=== PATIENT | female | born 1975 | race Caucasian/White ===

== ENCOUNTER → 2016-08-07 | Outpatient (CLI) | payer OTHER ==
--- NOTE | 2016-08-07 10:50 | REPMRS ---
Patient History The patient states she had a clinical breast exam in 06/29 Baseline Mammogram Patient had first child at age 32. No known family history of cancer. Took hormonal contraceptives for 1 month. Digital Woman Screen Mammo: August 07, 2016 - Exam #: [id number] Bilateral CC and MLO view(s) were taken. Technologist: Maryan Madison, Technologist FINDINGS: There are scattered fibroglandular densities. There is no evidence of cancer on this mammogram. ASSESSMENT: BI-RADS/ACR category 2 mammogram. Benign finding(s). Recommendation Routine screening mammogram of both breasts in 1 year (for women over age 40). This mammogram was interpreted with the aid of an FDA-approved computer-aided dectection system. Electronically Signed By: Phong Mccain MD 08/07/16 1040
== END ==
LOC: M WHC 09:24
PROVIDERS: ATTEND Nurse Practitioner Adult Health
DX: Z12.31 Encounter for screening mammogram for malignant neoplasm of breast (principal)

== ENCOUNTER → 2016-11-15 | Outpatient (REF) | payer OTHER ==
[2016-11-15 14:46] LABS: MEAN CORPUSCULAR HEMOGLOBIN 33.8 pg (27.0-33.0); MEAN CORPUSCULAR HGB CONC 34.8 g/dl (32.0-36.5); MEAN CORPUSCULAR VOLUME 97.1 fl (80.0-96.0); RED CELL DISTRIBUTION WIDTH 11.6 % (11.5-14.5); WHITE BLOOD COUNT 9.7 K/mm3 (4.0-10.0)
[2016-11-15 14:49] LABS: HCG, SERUM QUANTITATIVE 90840 MIU/ML
== END ==
LOC: M LAB REF 13:33
PROVIDERS: ATTEND Advanced Practice Midwife
DX: O36.80X0 Pregnancy with inconclusive fetal viability, not applicable or unspecified (principal)

== ENCOUNTER → 2016-12-06 | Outpatient (REF) | payer OTHER ==
[2016-12-06 21:43] LABS: CALCIUM OXALATE CRYSTALS SMALL
== END ==
LOC: M LAB REF 21:14
PROVIDERS: ATTEND Physician Assistant Medical
DX: N39.0 Urinary tract infection, site not specified (principal)

== ENCOUNTER → 2017-03-01 | Outpatient (CLI) | payer OTHER ==
[2017-03-01 13:32] LABS: MEAN CORPUSCULAR HEMOGLOBIN 33.3 pg (27.0-33.0); MEAN CORPUSCULAR HGB CONC 34.6 g/dl (32.0-36.5); MEAN CORPUSCULAR VOLUME 96.3 fl (80.0-96.0); PLATELET COUNT, AUTOMATED 181 10^3/uL (150-450); RED CELL DISTRIBUTION WIDTH 12.4 % (11.5-14.5); WHITE BLOOD COUNT 10.6 10^3/uL (4.0-10.0)
== END ==
LOC: M LAB 11:50
PROVIDERS: ATTEND Advanced Practice Midwife
DX: O09.522 Supervision of elderly multigravida, second trimester (principal); Z3A.23 23 weeks gestation of pregnancy

== ENCOUNTER → 2017-03-05 | Outpatient (REF) | payer OTHER | LOC: M LAB REF 13:03 | PROVIDERS: ATTEND Advanced Practice Midwife | DX: R30.0 Dysuria (principal) ==

== ENCOUNTER → 2017-04-06 | Outpatient (REF) | payer OTHER ==
[~2017-04-06] MED LIST: MACR100C43 PO; PYRI1TAB5 PO; SERT-155 PO
[2017-04-06 21:45] LABS: CALCIUM OXALATE CRYSTALS MODERATE
== END ==
LOC: M LAB REF 12:47
PROVIDERS: ATTEND Physician Assistant
DX: R30.0 Dysuria (principal)

== ENCOUNTER 2017-04-11 15:51 | Emergency (ER) | payer OTHER ==
[2017-04-11 16:57] LABS: AMORPHOUS SEDIMENT RFX SMALL (NEGATIVE); CALCIUM OXALATE CRYSTALS RFX SMALL; KETONE, URINE AUTO RFX TRACE mg/dL (NEGATIVE); MUCUS, URINE RFX LARGE (NEGATIVE); NITRITE, URINE AUTO RFX NEGATIVE (NEGATIVE); RBC, URINE AUTO RFX TNTC /HPF (0-3); SPECIFIC GRAVITY UR AUTO RFX 1.045 (1.002-1.035); SQUAM EPITHELIAL CELL UR AURFX 19 /HPF (0-6)
[2017-04-11 17:09] LABS: LEUKOCYTE ESTERASE UR AUTO RFX 1+ (NEGATIVE); WBC, URINE AUTO RFX 41 /HPF (0-3)
[2017-04-11 17:44] LABS: BASO % 0.4 % (0.0-1.0); EOS % 0.5 % (0.0-3.0); IMMATURE GRANULOCYTE % 0.5 % (0-0); LYMPH % 23.3 % (24.0-44.0); MEAN CORPUSCULAR HEMOGLOBIN 33.1 pg (27.0-33.0); MEAN CORPUSCULAR VOLUME 97.5 fl (80.0-96.0); MONO # 0.5 10^3/uL (0.0-0.8); MONO % 5.7 % (0.0-5.0); NEUTROPHILS # 5.9 10^3/uL (1.8-7.7); NEUTROPHILS % 69.6 % (36.0-66.0); PLATELET COUNT, AUTOMATED 197 10^3/uL (150-450); RED CELL DISTRIBUTION WIDTH 12.5 % (11.5-14.5); WHITE BLOOD COUNT 8.4 10^3/uL (4.0-10.0)
[2017-04-11 18:16] LABS: ANION GAP 7 MEQ/L (8-16); BLOOD UREA NITROGEN 14 MG/DL (7-18); CALCIUM LEVEL 8.6 MG/DL (8.5-10.1); CARBON DIOXIDE LEVEL 26 MEQ/L (21-32); CHLORIDE LEVEL 104 MEQ/L (98-107); GLOMERULAR FILTRATION RATE > 60.0 (>58); GLUCOSE, FASTING 78 MG/DL (70-105); POTASSIUM SERUM 4.1 MEQ/L (3.5-5.1); SODIUM LEVEL 137 MEQ/L (136-145)
== END 2017-04-11 19:00 | disposition home or self-care (01) ==
LOC: M ED 15:51
DX: O23.23 Infections of urethra in pregnancy, third trimester (principal); Z3A.29 29 weeks gestation of pregnancy; Z79.2 Long term (current) use of antibiotics
CPT/HCPCS: 76775

== ENCOUNTER → 2017-04-28 | Outpatient (REF) | payer OTHER | LOC: M LAB REF 18:47 | DX: R30.0 Dysuria (principal) | CPT/HCPCS: 87086 ==

== ENCOUNTER → 2017-05-27 | Outpatient (REF) | payer OTHER | LOC: M LAB REF 18:02 | DX: O09.513 Supervision of elderly primigravida, third trimester (principal) ==

== ENCOUNTER 2017-06-22 09:57 | Inpatient (IN) | payer OTHER ==
[2017-06-22] MEDS: busPIRone 5 MG TAB PO (09:00)
[2017-06-22] MEDS: SERTRALINE 100 MG TAB PO (09:00)
[2017-06-22] MEDS: LR 1,000 ML IV (10:21)
[2017-06-22] MEDS: LACTATED RINGER'S 1000 ML IV (10:21)
[2017-06-22 11:07] LABS: HEMATOCRIT 36.3 % (36.0-47.0); HEMOGLOBIN 12.5 g/dl (12.0-16.0); MEAN CORPUSCULAR HEMOGLOBIN 33.9 pg (27.0-33.0); MEAN CORPUSCULAR HGB CONC 34.4 g/dl (32.0-36.5); MEAN CORPUSCULAR VOLUME 98.4 fl (80.0-96.0); PLATELET COUNT, AUTOMATED 134 10^3/uL (150-450); RED BLOOD COUNT 3.69 10^6/uL (4.00-5.40); RED CELL DISTRIBUTION WIDTH 12.7 % (11.5-14.5); WHITE BLOOD COUNT 9.5 10^3/uL (4.0-10.0)
[2017-06-22] MEDS ORDERED: FENTANYL 2MCG/ML ROPIVACAINE 0.2% IN 0.9% NACL 200ML IVBAG As Ordered (11:14)
[2017-06-22 11:30] LABS: AMPHETAMINES URINE REFLEX NEGATIVE (NEGATIVE); BARBITURATES URINE REFLEX NEGATIVE (NEGATIVE); BENZODIAZEPINES URINE REFLEX NEGATIVE (NEGATIVE); COCAINE METABOLITE URINE REFLE NEGATIVE (NEGATIVE); METHADONE URINE REFLEX NEGATIVE (NEGATIVE); OPIATES URINE REFLEX NEGATIVE (NEGATIVE); PHENCYCLIDINE URINE REFLEX NEGATIVE (NEGATIVE)
[2017-06-22 11:37] LABS: CANNABINOIDS URINE REFLEX PENDING CONFIRMATION (NEGATIVE)
[2017-06-22] MEDS ORDERED: ONDANSETRON 4MG/2ML VIAL (J2405) IV (12:15)
[2017-06-22] MEDS ORDERED: EPIDURAL COMMENT XX (12:15)
[2017-06-22] MEDS ORDERED: LACTATED RINGER'S 1000 ML IV (12:15)
[2017-06-22] MEDS ORDERED: REFRIGERATOR IV KEYS XX (12:15)
[2017-06-22] MEDS ORDERED: diphenhydrAMINE INJ 50MG/ML VIAL (J1200) IV (12:15)
[2017-06-22] MEDS ORDERED: EPIDURAL/PCA KEYS XX (12:15)
[2017-06-22] MEDS ORDERED: NALOXONE INJ 0.4 MG/1 ML VIAL (J2310) IV (12:15)
[2017-06-22] MEDS ORDERED: FENTANYL/ROPIVACAINE/NACL BAG 200 ML EPIDURAL (12:15)
[2017-06-22] MEDS ORDERED: ePHEDrine SULFATE 25 MG/5 ML(5MG/ML) SYRINGE IV (12:15)
[2017-06-22] MEDS ORDERED: OXYTOCIN 30 UNITS IN 0.9% NaCl 500ML IV BAG (J2590) As Ordered (16:03)
[2017-06-22] MEDS ORDERED: DOCUSATE SODIUM 100 MG CAP PO (18:15)
[2017-06-22] MEDS ORDERED: MEASLES,MUMPS,RUBELLA VACCINE INJ (MMR-II) (90707) SC (18:15)
[2017-06-22] MEDS: OXYTOCIN DRIP 30 UNITS in APPROPRIATE DILUENT 1 EA IV (18:15)
[2017-06-22] MEDS ORDERED: RHOGAM 300 MCG (1500 IU) INJ (J2790) IM (18:15)
[2017-06-22] MEDS ORDERED: DIBUCAINE 1% OINTMENT 30GM TOP (18:15)
[2017-06-22] MEDS ORDERED: METHYLERGONOVINE MALEATE 0.2 MG TAB PO (18:15)
[2017-06-22] MEDS: NITROFURANTOIN (MACROBID) 100 MG CAP PO (21:09)
[2017-06-22] MEDS: IBUPROFEN 800 MG TAB PO (21:09)
[2017-06-23] MEDS: IBUPROFEN 800 MG TAB PO ×2 (08:17→16:05)
[2017-06-23] MEDS: SERTRALINE 100 MG TAB PO (08:55)
[2017-06-23] MEDS: PRENATAL VITAMINS CHEWABLE TABLET PO (08:55)
[2017-06-23] MEDS: busPIRone 5 MG TAB PO (08:55)
[2017-06-23] MEDS: medroxyPROGESTERone ACET IM SUSP 150 MG/ML VIAL (J1050) IM (08:55)
[2017-06-23] MEDS: NITROFURANTOIN (MACROBID) 100 MG CAP PO ×2 (08:55→20:30)
[2017-06-23] MEDS: ACETAMINOPHEN 500 MG TAB PO (20:30)
[2017-06-24] MEDS: PRENATAL VITAMINS CHEWABLE TABLET PO (08:09)
[2017-06-24] MEDS: NITROFURANTOIN (MACROBID) 100 MG CAP PO (08:10)
[2017-06-24] MEDS: SERTRALINE 100 MG TAB PO (08:10)
[2017-06-24] MEDS: ACETAMINOPHEN 500 MG TAB PO (08:10)
[2017-06-24] MEDS: busPIRone 5 MG TAB PO (08:10)
== END 2017-06-24 14:15 | disposition home or self-care (01) | DRG 560 ==
LOC: M LDO 09:57 → M LDI 10:20 → M OBS 19:47
PROVIDERS: Specialist
PROC: 10E0XZZ Delivery of Products of Conception, External Approach (ICD-10-PCS; principal; 2017-06-22)
PROC: 0HQ9XZZ Repair Perineum Skin, External Approach (ICD-10-PCS; 2017-06-22)
DX: O70.0 First degree perineal laceration during delivery (principal); F32.9 Major depressive disorder, single episode, unspecified; O99.344 Other mental disorders complicating childbirth; Z37.0 Single live birth; Z3A.39 39 weeks gestation of pregnancy; F41.9 Anxiety disorder, unspecified; O09.523 Supervision of elderly multigravida, third trimester; Z79.899 Other long term (current) drug therapy

== ENCOUNTER 2017-09-25 13:53 | Day surgery (SDC) | payer OTHER ==
[2017-09-25] MEDS ORDERED: ceFAZolin 2 GM/D5W 50 ML IV BAG (J0690 PER 500MG) As Ordered ×2 (14:06)
[2017-09-25 14:14] LABS: CONTROL LINE UCG INT CTR LINE PRESENT; URINE PREG TEST NEGATIVE (NEGATIVE)
[2017-09-25] MEDS ORDERED: ACETAMINOPHEN 650 MG SUPP PR ×2 (14:30)
[2017-09-25] MEDS: LR 1,000 ML IV ×2 (14:32)
[2017-09-25 14:37] LABS: HEMOGLOBIN 14.5 g/dl (12.0-15.5); MEAN CORPUSCULAR HEMOGLOBIN 32.5 pg (27.0-33.0); MEAN CORPUSCULAR HGB CONC 34.5 g/dl (32.0-36.5); MEAN CORPUSCULAR VOLUME 94.2 fl (80.0-96.0); PLATELET COUNT, AUTOMATED 204 10^3/uL (150-450); RED BLOOD COUNT 4.46 10^6/uL (4.00-5.40); RED CELL DISTRIBUTION WIDTH 11.9 % (11.5-14.5)
[2017-09-25] MEDS ORDERED: ACETAMINOPHEN 650 MG SUPP As Ordered ×2 (15:18)
[2017-09-25] MEDS ORDERED: VASOPRESSIN INJ 20 UNITS/ML VIAL As Ordered ×4 (15:18→19:42)
[2017-09-25] MEDS ORDERED: PROPOFOL 200 MG/20 ML VIAL As Ordered ×2 (15:27)
[2017-09-25] MEDS ORDERED: MIDAZOLAM INJ 2 MG/2 ML VIAL (J2250) As Ordered ×2 (15:27)
[2017-09-25] MEDS ORDERED: ROCURONIUM BROMIDE 50 MG/5 ML VIAL As Ordered ×2 (15:27)
[2017-09-25] MEDS ORDERED: KETOROLAC 60 MG/2 ML VIAL (J1885) As Ordered ×2 (15:27)
[2017-09-25] MEDS ORDERED: ONDANSETRON 4MG/2ML VIAL (J2405) As Ordered ×2 (15:27)
[2017-09-25] MEDS ORDERED: dexameTHASONE 4 MG/ML 1ML VIAL (J1100) As Ordered ×2 (15:27)
[2017-09-25] MEDS ORDERED: HYDROmorphone HCL 2 MG/ML 1ML VIAL (J1170) As Ordered ×2 (15:27)
[2017-09-25] MEDS ORDERED: fentaNYL 100 MCG/2 ML INJECTION (J3010) As Ordered ×2 (15:28)
[2017-09-25] MEDS: fentaNYL 100 MCG/2 ML INJECTION (J3010) IV ×8 (21:19→21:38)
[2017-09-25] MEDS: PERCOCET 5MG/325MG TAB PO ×4 (21:19→21:57)
[2017-09-25] MEDS: METOCLOPRAMIDE INJ 10MG/2ML VIAL (J2765) IV ×2 (21:19)
[2017-09-25] MEDS ORDERED: ONDANSETRON 4MG/2ML VIAL (J2405) IV ×2 (21:30)
[2017-09-25] MEDS ORDERED: LR 1,000 ML IV ×2 (21:30)
[2017-09-25] MEDS ORDERED: MEPERIDINE INJ 25 MG/ML VIAL (J2175) IV ×2 (21:30)
[2017-09-26] MEDS: SIMETHICONE 80 MG CHEW TAB PO ×6 (00:29→12:08)
[2017-09-26] MEDS: IBUPROFEN 800 MG TAB PO ×6 (00:37→12:09)
[2017-09-26] MEDS: PERCOCET 5MG/325MG TAB PO ×4 (02:29→07:11)
[2017-09-26] MEDS: LR 1,000 ML IV ×2 (02:56)
== END 2017-09-26 13:10 | disposition home or self-care (01) ==
LOC: M SDC 13:53 → M PED 22:10
DX: N81.2 Incomplete uterovaginal prolapse (principal); N39.3 Stress incontinence (female) (male); F41.9 Anxiety disorder, unspecified; F32.9 Major depressive disorder, single episode, unspecified; Z79.899 Other long term (current) drug therapy
CPT/HCPCS: 58262

== ENCOUNTER → 2018-08-20 | Outpatient (REF) | payer OTHER ==
[~2018-08-20] MED LIST changes: +BUSP5TA PO; +IBUP-1114 PO; +IBUP80TA PO; +MAPA500T2 PO; +PERC5TAB12 PO
== END ==
LOC: M LAB REF 16:30
PROVIDERS: ATTEND Physician Assistant
DX: R30.0 Dysuria (principal)

== ENCOUNTER → 2018-09-11 | Outpatient (REF) | payer OTHER | LOC: M LAB REF 12:15 | PROVIDERS: ATTEND Nurse Practitioner Adult Health | DX: B35.1 Tinea unguium (principal) ==

== ENCOUNTER → 2019-11-13 | Outpatient (CLI) | payer OTHER, SELFPAY ==
[~2019-11-13] MED LIST changes: -SERT-155 PO; +SERT50TA29 PO
== END ==
LOC: M LABSMTC 13:15
PROVIDERS: ATTEND Pediatrics
DX: Z20.828 Contact with and (suspected) exposure to other viral communicable diseases (principal); Z11.59 Encounter for screening for other viral diseases
CPT/HCPCS: C9803; U0003

== ENCOUNTER → 2019-12-01 | Outpatient (REF) | payer OTHER | LOC: M LAB REF 17:13 | PROVIDERS: ATTEND Nurse Practitioner Adult Health | DX: N39.0 Urinary tract infection, site not specified (principal) ==

== ENCOUNTER → 2019-12-30 | Outpatient (REF) | payer OTHER ==
[2019-12-30 18:14] LABS: APPEARANCE, URINE HAZY (CLEAR); BACTERIA, URINE AUTO NEGATIVE (NEGATIVE); BILIRUBIN, URINE AUTO NEGATIVE (NEGATIVE); BLOOD, URINE BLOOD 3+ (NEGATIVE); COLOR, URINE YELLOW (YELLOW); GLUCOSE, URINE (UA) AUTO NEGATIVE (NEGATIVE); KETONE, URINE AUTO NEGATIVE (NEGATIVE); LEUKOCYTE ESTERASE, URINE AUTO NEGATIVE (NEGATIVE); MUCUS, URINE SMALL (NEGATIVE); NITRITE, URINE AUTO NEGATIVE (NEGATIVE); PROTEIN, URINE AUTO NEGATIVE (NEGATIVE); RBC, URINE AUTO 23 /HPF (0-3); SQUAMOUS EPITHELIAL CELL UR AU 4 /HPF (0-6); UROBILINOGEN, URINE AUTO 0.2 mg/dL (0.0-2.0); WBC, URINE AUTO 2 /HPF (0-3)
== END ==
LOC: M SMT 16:58
PROVIDERS: ATTEND Nurse Practitioner Family
DX: N39.0 Urinary tract infection, site not specified (principal); R30.0 Dysuria

== ENCOUNTER → 2020-07-19 | Outpatient (CLI) | payer OTHER ==
--- NOTE | 2020-07-19 12:53 | REPMRS ---
Patient History The patient states she had a clinical breast exam in 07/2020 Patient had first child at age 32. No known family history of cancer. Took hormonal contraceptives for 1 month. 3D TOMOSYNTHESIS WAS PERFORMED. [facility] lifetime risk for [facility] cancer is 14.0%. Volpara breast density b. Digital Woman Screen Mammo: July 19, 2020 - Exam #: [id number] Bilateral CC and MLO view(s) were taken. Technologist: Maryan Madison, Technologist Prior study comparison: August 07, 2016, digital woman screen mammo performed at [facility] [place]. FINDINGS: There are scattered fibroglandular densities. There has been no change in the appearance of the mammogram from the prior studies. There is a mild amount of residual fibroglandular tissue which is fairly symmetric. There is no interval development of dominant mass, architectural distortion, or clustered microcalcification suggestive of malignancy. Assessment: BI-RADS/ACR category 1 mammogram. Negative Mammogram. Recommendation Routine screening mammogram in 1 year (for women over age 40). This mammogram was interpreted with the aid of an FDA-approved computer-aided dectection system. Electronically Signed By: Phong Mccain MD 07/19/20 [id number]
== END ==
LOC: M WHC 12:16
PROVIDERS: ATTEND Obstetrics & Gynecology
DX: Z12.31 Encounter for screening mammogram for malignant neoplasm of breast (principal)

== ENCOUNTER → 2020-09-19 | Outpatient (CLI) | payer OTHER ==
--- NOTE | 2020-09-19 21:50 | REP ---
INDICATION: PAIN COMPARISON: None. TECHNIQUE: AP, lateral, bilateral oblique views. FINDINGS: Lateral swelling consistent with inversion injury. No acute fracture or dislocation. Ankle mortise and talar dome intact. No subcutaneous emphysema or foreign body. IMPRESSION: Lateral swelling. No fracture. <Electronically signed by Quentin June > 09/19/20 [id number]
== END ==
LOC: M WUC 13:46
PROVIDERS: ATTEND Physician Assistant
DX: M25.571 Pain in right ankle and joints of right foot (principal)

== ENCOUNTER → 2022-08-13 | Outpatient (CLI) | payer OTHER | LOC: M WHC 10:34 | PROVIDERS: ATTEND Obstetrics & Gynecology | DX: Z12.31 Encounter for screening mammogram for malignant neoplasm of breast (principal); R92.2 Inconclusive mammogram ==

== ENCOUNTER → 2022-08-28 | Outpatient (CLI) | payer OTHER | LOC: M WHC 09:26 | PROVIDERS: ATTEND Obstetrics & Gynecology | DX: R92.2 Inconclusive mammogram (principal); Z12.31 Encounter for screening mammogram for malignant neoplasm of breast ==